=== PATIENT | male | born 1930 | race Caucasian/White ===

== ENCOUNTER 2019-11-16 11:13 | Inpatient (IN) | payer OTHER ==
[~2019-11-16] VITALS: Ht 182.9 cm; Wt 103.4 kg
[~2019-11-16 11:13] MED LIST: ACET650S11 RC; ALLA266C2 TP; AMIO200T4 GT; AMLO5TAB9 GT; APIX5TAB GT; ASCO-495 GT; ASPI-1169 GT; ATOR40TA GT; DEXT37.54 PO; GLUC1KIT IM; INSU100I45 SQ; INSU100V27 SQ; INSU100V30 SQ; ONDA4TAB5 GT; PANT40SU2 GT; POLY17PO4 GT
[2019-11-16] MEDS ORDERED: GLUCAGON,HUMAN RECOMBINANT 1 MG/VIAL VIAL IM PRN (14:00)
[2019-11-16] MEDS ORDERED: ONDANSETRON HCL 4 MG/5 ML SOLUTION GT PRN (14:00)
[2019-11-16] MEDS ORDERED: POLYETHYLENE GLYCOL 3350 17 GM POWD.PACK GT PRN (14:00)
[2019-11-16] MEDS ORDERED: ACETAMINOPHEN 650 MG/SUPP.RECT RC PRN (14:00)
[2019-11-16] MEDS ORDERED: INSULIN ASPART/LISPRO 100 UNIT/ML CARTRIDGE SQ PRN (14:00)
[2019-11-16] MEDS ORDERED: GLUTOSE 15 G GEL..GM. PO PRN (14:00)
--- NOTE | 2019-11-16 16:00 | NUR ---
PT DISCHARGED FROM [facility] AND READMITTED ON HOSPICE. WILL CONTINUE TO MONITOR
[2019-11-16] MEDS ORDERED: DEXTROSE 50%-WATER 50 ML DISP.SYRIN IV PRN (16:30)
[2019-11-16] MEDS: APIXABAN 5 MG TABLET GT SCH (17:26)
[2019-11-16] MEDS: Z GUARD REMEDY 2 OZ OINT TP SCH ×2 (17:31→22:01)
[2019-11-16] MEDS: GLUCERNA 1.2 1,000 ML BOTTLE GT PRN (17:34)
[2019-11-16] MEDS: BLOOD SUGAR DIAGNOSTIC 1 EACH STRIP IN SCH ×2 (17:41→23:38)
[2019-11-16] MEDS: INSULIN NPH, HUMAN ISOPHANE 100 UNIT/ML VIAL SQ SCH (17:41)
[2019-11-16] MEDS: INSULIN REGULAR, HUMAN 100 UNIT/ML 3 ML VIAL SQ PRN (17:44)
[2019-11-16] MEDS ORDERED: INSULIN NPH, HUMAN ISOPHANE 100 UNIT/ML VIAL SQ SCH (18:00)
[2019-11-16] MEDS ORDERED: INSULIN REGULAR, HUMAN 100 UNIT/ML 3 ML VIAL SQ SCH (18:00)
--- NOTE | 2019-11-16 18:50 | NUR ---
RN CLOSING NOTES PT AWAKE IN BED AT THIS TIME. PT REMAINED STABLE THROUGHOUT SHIFT. ALL CARE, NEEDS, MEDICATIONS AND TREATMENT ADMINISTERED ANTICIPATED PER ORDER. PT REPOSITION Q2HR, FC CARE PROVIDED. RESTRAINTS ASSESSED FOR GOOD CIRLATION. ASPIRATION AND SAFETY PRECAUTION IN PLACE AND MAINTAINED AT ALL TIMES. BED IN LOWEST LOCKED POSITION, HOB ELEVATED, RAILS UP X 2, CALL LIGHT WITHIN REACH. WILL ENDORSE TO ARCHITECTURAL TECHNOLOGIST NURSE FOR ANTONINA
--- NOTE | 2019-11-16 19:06 | NUR ---
RN OPENING NOTES RECEIVED PT RESTING IN BED. A/O X1. PT IS CONFUSED. PT IS DNR/DNI WITH HOSPICE CARE NOTED. PT IS BED BOUND. HEELS FLOATED. DAVIS CATHETER IN PLACE DRAINING YELLOW URINE, FREE OF SEDIMENT AT THIS TIME. SKIN IS VERY FRAGILE WITH XEROFORM KERLIX ON KNEE PINK, XEROFORM KERLIX ON LEFT ARM PINK. DIABETIC ULCER ON RIGHT BIG TOE WITH MEPILEX. SACRUM REINFORCED WITH MEPILEX. G TUBE RUNNING GLUCERNA 1.2 @55ML/HR/ PATENT FLUSHED. AUSCULTATED FOR PLACEMENT. IV SITE RIGHT UPPER ARM PICC LINE PATENT FLUSHED. BED IS LOCKED IN LOWEST POSITION WITH ALARM ON. CALL LIGHT WITHIN REACH. WILL CONTINUE TO MONITOR.
--- NOTE | 2019-11-16 19:07 | NUR ---
PT IS ON 3L OF OXYGEN VIA NASAL CANNULA. NO SIGNS OF SOB OR RESPIRATORY DISTRESS. BREATHING IS EVEN AND UNLABORED AT THIS TIME. WILL CONTINUE TO MONITOR.
[2019-11-16 20:00] VITALS: BP 138/54
[2019-11-16] MEDS: AMIODARONE HCL 200 MG TABLET GT SCH (22:00)
[2019-11-16] MEDS: ATORVASTATIN 40 MG TABLET GT SCH (22:00)
--- NOTE | 2019-11-17 03:49 | NUR ---
WOUND CARE CARRIED OUT ORDERED. PT IS SLIGHTLY AGITATED, REORIENTED TO ENVIRONMENT. HYGIENE CARE PROVIDED. WILL CONTINUE TO MONITOR
[2019-11-17 04:00] VITALS: BP 148/71
[2019-11-17] MEDS: BLOOD SUGAR DIAGNOSTIC 1 EACH STRIP IN SCH ×3 (06:10→17:47)
[2019-11-17] MEDS: PANTOPRAZOLE 40 MG/PACK PACK GT SCH (06:10)
[2019-11-17] MEDS: INSULIN NPH, HUMAN ISOPHANE 100 UNIT/ML VIAL SQ SCH (06:13)
[2019-11-17] MEDS: INSULIN REGULAR, HUMAN 100 UNIT/ML 3 ML VIAL SQ PRN (06:16)
--- NOTE | 2019-11-17 07:38 | NUR ---
WOUND CARE CONSULT: PT ON HOSPICE CARE AT THIS TIME. SPOKE WITH FARMER DIVERSIFIED CROPS. PT RESTING AND NOT DISTURBED FOR SKIN ASSESSMENT. RECOMMENDATIONS MADE FOR SKIN PROTECTION AND WOUND CARE. DISCUSSED WITH NURSING STAFF. PT IS ON FIRST STEP HANNAH COLLAZO MD IN AGREEMENT WITH PLAN OF CARE. Addendum: 11/17/19 at 0744 by SEN BARONE WNDNU PER PHOTO DOCUMENTATION AND NURSING REPORT THERE ARE MULTIPLE AREAS OF SKIN DISCOLORATION, SCARRING, LOWER EXTREMITY DRY WOUNDS AND SACRAL DEEP TISSUE INJURY WHICH IS INTACT (NO DRAINAGE) WITH PEELING SKIN, ALL PRESENT ON ADMISSION.
--- NOTE | 2019-11-17 07:43 | NUR ---
RN OPENING NOTE PATIENT IN BED RESTING COMFORTABLY. PATIENT IN NO ACUTE DISTRESS. NO SOB NOTED. PATIENT BREATHING IS EVEN AND UNLABORED. PATIENT WITH BILATERAL SOFT WRIST RESTRAINTS WITH GOOD CIRCULATION NOTED. PATIENT BED ALARM IS ON. PATIENT SAFETY PRECAUTIONS IN PLACE. PATIENT BED IS LOCKED AND IN LOWEST POSITION. CALL LIGHT WITHIN REACH. WILL CONTINUE TO MONITOR.
--- NOTE | 2019-11-17 07:57 | NUR ---
RN CLOSING NOTES PT IS CURRENTLY RESTING IN BED. STILL CONFUSED. STILL ON O2 AT 3L TOLERATING WELL. O2 SATURATION AT 98% NO SIGNS OF RESP DISTRESS OR SHORTNESS OF BREATH NOTED AT THIS TIME. G TUBE STILL RUNNING AT GOAL OF 55ML/HR. TOLERATING WELL. HOB RAISED. LESS THAN 5CC RESIDUALS CHECKED. WOUND CARE PERFORMED ORDERED. CALL LIGHT WITHIN REACH. BED IS LOCKED IN LOWEST POSITION WITH BED ALARM ON. ENDORSED TO ONCOMING NURSE FOR CONTINUATION OF CARE.
[2019-11-17] MEDS: AMLODIPINE BESYLATE 5 MG TABLET GT SCH (08:32)
[2019-11-17] MEDS: ASPIRIN 81 MG TAB.CHEW GT SCH (08:32)
[2019-11-17] MEDS: AMIODARONE HCL 200 MG TABLET GT SCH ×2 (08:33→21:59)
[2019-11-17] MEDS: ASCORBIC ACID 500 MG TABLET GT SCH (08:33)
[2019-11-17] MEDS: APIXABAN 5 MG TABLET GT SCH ×2 (08:35→17:17)
[2019-11-17] MEDS: Z GUARD REMEDY 2 OZ OINT TP SCH ×4 (08:35→21:58)
[2019-11-17 12:00] VITALS: BP 133/79
[2019-11-17] MEDS: GLUCERNA 1.2 1,000 ML BOTTLE GT PRN (12:30)
--- NOTE | 2019-11-17 12:38 | NUR ---
RN NOTE PATIENT BLOOD SUGAR IS 89. NO INSULIN COVERAGE NEEDED PER PROTOCOL.
--- NOTE | 2019-11-17 15:49 | NUR ---
RN NOTE PATIENT IN BED RESTING COMFORTABLY. PATIENT IN NO ACUTE DISTRESS. NO SOB NOTED. PATIENT BREATHING IS EVEN AND UNLABORED. PATIENT KEPT CLEAN, DRY, AND COMFORTABLE THROUGHOUT MY SHIFT. PATIENT IS NOT RESTLESS, BILATERAL SOFT WRIST RESTRAINTS OFF. GOOD CIRCULATION IS NOTED. ENDORSED ALL CARE AND REPORT GIVEN TO TARA OLGUIN FOR ANTONINA. Addendum: 11/17/19 at 1553 by LUCAS SWEENEY RN RN NOTE PATIENT IN BED RESTING COMFORTABLY. PATIENT IN NO ACUTE DISTRESS. NO SOB NOTED. PATIENT BREATHING IS EVEN AND UNLABORED. PATIENT KEPT CLEAN, DRY, AND COMFORTABLE THROUGHOUT MY SHIFT. PATIENT IS NOT RESTLESS, BILATERAL SOFT WRIST RESTRAINTS OFF. GOOD CIRCULATION IS NOTED. PATIENT BED IS LOCKED AND IN LOWEST POSITION. CALL LIGHT WITHIN REACH. ENDORSED ALL CARE AND REPORT GIVEN TO TARA OLGUIN FOR ANTONINA.
--- NOTE | 2019-11-17 15:50 | NUR ---
REPORT RECEIVED FROM CLAU ZAVALA
--- NOTE | 2019-11-17 20:15 | NUR ---
CASINO DUTY MANAGER INITIAL NOTES' RECEIVED REPORT FROM ANOTHER NURSE JENNIE AND SEEN PT IN BED AWAKE BUT EYES CLOSED RESPONDING WHEN YOU CALL HIM, JUST MOANING , WITH NASAL CANULA NO SIGNS OF ANY ACUTE DISTRESS NOTED. HE STILL ON G-TUBE FEEDING GLUCERNA AT 55 ML/HR NO ASPIRATION NOTED. HE ALSO WITH DAVIS TO GRAVITY. KEPT HIM ON SEMI FOWLERS POSITION FOR ASPIRATION PRECAUTION. KEPT HIM WARM AND COMFORTABLE AT ALL TIMES. WILL CONTINUE MONITORING.
[2019-11-17] MEDS: ATORVASTATIN 40 MG TABLET GT SCH (21:58)
[2019-11-17 22:56] VITALS: BP 124/74
[2019-11-18] MEDS: BLOOD SUGAR DIAGNOSTIC 1 EACH STRIP IN SCH ×4 (00:55→18:08)
[2019-11-18] MEDS: INSULIN REGULAR, HUMAN 100 UNIT/ML 3 ML VIAL SQ PRN ×3 (00:58→18:13)
--- NOTE | 2019-11-18 01:07 | NUR ---
nnps notes blood sugar checked done 175, no signs of hypo/hyper glycemia noted. 4 units of insulin given leila SQ as ordered,reposition him for comfort. will continue monitoring.
[2019-11-18 05:09] VITALS: BP 142/75
[2019-11-18] MEDS: INSULIN NPH, HUMAN ISOPHANE 100 UNIT/ML VIAL SQ SCH ×2 (06:00→18:13)
[2019-11-18] MEDS: PANTOPRAZOLE 40 MG/PACK PACK GT SCH (06:11)
[2019-11-18] MEDS: GLUCERNA 1.2 1,000 ML BOTTLE GT PRN (06:45)
--- NOTE | 2019-11-18 07:17 | NUR ---
hospice supervisor alteration workroom closing notes pt awake and confused screaming on and off but no signs of any acute distress noted. Stable throughout the night . g-tube tolerated well no aspiration noted. Morning care done as well as his wound care treatment. reposition pt for comfort. kept him warm and comfortable at all times. on semi fowlers position with side rails up. bed alarm set for safety. will endorse to am nurse.
[2019-11-18 08:00] VITALS: BP 130/77
[2019-11-18] MEDS: APIXABAN 5 MG TABLET GT SCH ×2 (09:23→18:17)
[2019-11-18] MEDS: AMIODARONE HCL 200 MG TABLET GT SCH ×2 (09:23→21:35)
[2019-11-18] MEDS: ASCORBIC ACID 500 MG TABLET GT SCH (09:24)
[2019-11-18] MEDS: ASPIRIN 81 MG TAB.CHEW GT SCH (09:26)
[2019-11-18] MEDS: AMLODIPINE BESYLATE 5 MG TABLET GT SCH (09:26)
[2019-11-18] MEDS: Z GUARD REMEDY 2 OZ OINT TP SCH ×4 (09:26→21:35)
[2019-11-18 12:00] VITALS: BP 127/65
[2019-11-18 16:00] VITALS: BP 126/70
--- NOTE | 2019-11-18 18:48 | NUR ---
SPECIAL SERVICES SUPERVISOR NOTES PT IS CURRENTLY RESTING IN BED. STILL CONFUSED. STILL ON O2 AT 3L TOLERATING WELL. O2 SATURATION AT 95% NO SIGNS OF RESP DISTRESS OR SHORTNESS OF BREATH NOTED AT THIS TIME. G TUBE STILL RUNNING AT GOAL OF 55ML/HR. TOLERATING WELL. HOB KEPT ELEVATED FOR ASPIRATION PRECAUTION. WOUND CARE PERFORMED ORDERED. CALL LIGHT WITHIN REACH. SAFETY PRECAUTION OBSERVED. WILL ENDORSE TO NEXT SHIFT FOR CONTINUATION OF CARE.
[2019-11-18 20:00] VITALS: BP 139/65
[2019-11-18] MEDS: ATORVASTATIN 40 MG TABLET GT SCH (21:32)
[2019-11-19] MEDS: BLOOD SUGAR DIAGNOSTIC 1 EACH STRIP IN SCH ×5 (00:13→23:20)
[2019-11-19] MEDS: INSULIN REGULAR, HUMAN 100 UNIT/ML 3 ML VIAL SQ PRN ×4 (00:14→23:24)
[2019-11-19 04:00] VITALS: BP 102/68
[2019-11-19] MEDS: GLUCERNA 1.2 1,000 ML BOTTLE GT PRN ×2 (05:29→22:55)
[2019-11-19] MEDS: PANTOPRAZOLE 40 MG/PACK PACK GT SCH (05:31)
[2019-11-19] MEDS: INSULIN NPH, HUMAN ISOPHANE 100 UNIT/ML VIAL SQ SCH ×2 (05:39→18:45)
--- NOTE | 2019-11-19 07:30 | NUR ---
LAYOUT TECHNICIAN OPENING NOTES RECEIVED PT IN BED RESTING. NO ACUTE DISTRESS NOTED. NO SOB NOTED. PATIENT BREATHING IS EVEN AND UNLABORED. PATIENT BED ALARM IS ON. PATIENT SAFETY PRECAUTIONS IN PLACE. PATIENT BED IS LOCKED AND IN LOWEST POSITION. CALL LIGHT WITHIN REACH. WILL CONTINUE TO MONITOR.
[2019-11-19 08:00] VITALS: BP 127/71
[2019-11-19] MEDS: ASCORBIC ACID 500 MG TABLET GT SCH (10:00)
[2019-11-19] MEDS: APIXABAN 5 MG TABLET GT SCH ×2 (10:01→18:47)
[2019-11-19] MEDS: AMLODIPINE BESYLATE 5 MG TABLET GT SCH (10:02)
[2019-11-19] MEDS: AMIODARONE HCL 200 MG TABLET GT SCH ×2 (10:02→21:53)
[2019-11-19] MEDS: ASPIRIN 81 MG TAB.CHEW GT SCH (10:02)
[2019-11-19] MEDS: Z GUARD REMEDY 2 OZ OINT TP SCH ×4 (10:04→22:20)
[2019-11-19 12:00] VITALS: BP 123/58
[2019-11-19] MEDS: MORPHINE SULFATE SOLN CONCENTRATED 20 MG/ML SL PRN ×2 (14:04→21:53)
--- NOTE | 2019-11-19 18:59 | NUR ---
RN CLOSING NOTES Pt awake with episodes of confusion. g-tube tolerated well no aspiration noted. AM care done as tolerated. reposition pt for comfort. kept him warm and comfortable at all times. on semi fowlers position with side rails up. bed alarm set for safety. will endorse to am nurse.
--- NOTE | 2019-11-19 19:30 | NUR ---
HOD CARRIER A/O X 1 IN BED CONFUSED NEEDS FREQUENT RE ORIENTATION NO S/S OF DISTRESS, STABLE. SAFETY MEASURES IN PLACE WILL CONT TO MONITOR
[2019-11-19 20:00] VITALS: BP 153/67
--- NOTE | 2019-11-19 20:51 | NUR ---
CARCASS WASHER PAGED HOSPITALIST PT TRYING TO REMOVE GT FEEDING AND OXYGEN DESPITE EXPLAINING RISKS AND BENEFITS PT NEEDS FREQUENT RE ORIENTATION PER KIMBERLEE OBTAINED ORDERS OF SOFT WRIST BILATERAL RESTRAINT ACUTE MEDICAL RESTRAINT READ BACK AND VERIFIED NOTED AND CARRIED OUT
[2019-11-19] MEDS: ATORVASTATIN 40 MG TABLET GT SCH (21:53)
--- NOTE | 2019-11-19 22:53 | NUR ---
MONORAIL CRANE OPERATOR REASSESS PAIN MEDICATION PT CALM AND SLEEPING AT THIS TIME NO S/S OF DISTRESS
--- NOTE | 2019-11-19 23:00 | NUR ---
CLEANING TECHNICIAN SPOKE TO LUCAS RUSSO REGARDING BILATERAL WRIST RESTRAINT. SON AGREED IF NEEDED. SON APPRECIATIVE TO NURSES
--- NOTE | 2019-11-19 23:05 | NUR ---
MS MATH SPECIALIST NURSE AWARE RESTRAINT APPLICATION.
--- NOTE | 2019-11-20 | NUR ---
138 mg/dl blood sugar sliding scale given
[2019-11-20 04:00] VITALS: BP 118/45
[2019-11-20] MEDS: PANTOPRAZOLE 40 MG/PACK PACK GT SCH (05:44)
--- NOTE | 2019-11-20 05:53 | NUR ---
146 mg/dl blood sugar
--- NOTE | 2019-11-20 05:53 | NUR ---
DC restraint ptp no longer removing lines and tubes remains calm and not in distress
[2019-11-20] MEDS: INSULIN NPH, HUMAN ISOPHANE 100 UNIT/ML VIAL SQ SCH ×2 (06:00→16:22)
[2019-11-20] MEDS: INSULIN REGULAR, HUMAN 100 UNIT/ML 3 ML VIAL SQ PRN (06:01)
[2019-11-20] MEDS: BLOOD SUGAR DIAGNOSTIC 1 EACH STRIP IN SCH ×4 (06:01→23:52)
--- NOTE | 2019-11-20 06:17 | NUR ---
PT MONITORED ACCORDINGLY, O2 SAT 100% 3LPM VIA NC. ALL NEEDS ATTENDED AND ANTICIPATED, KEPT CLEAN, DRY AND COMFORTABLE. REPOSITION EVERY 2 HOURS. WOUND CARE ORDERED, AM CARE RENDERED. NOT IN DISTRESS, CALM. SAFETY MEASURES AT ALL TIMES. ENDORSE POC.
[2019-11-20 08:00] VITALS: BP 125/62
--- NOTE | 2019-11-20 08:00 | NUR ---
RN NOTES PATIENT RECEIVED IN THE BED HOSPICE CARE, BUT PER HOSPITALIST KEEP GTF, OXYGEN, AND DAVIS PER FAMILY REQUEST. PATIENT NONVERBAL, KEEP HOB ELEVATED FOR ASPIRATION PRECAUTION, INFUSING GLUCERNA 55ML/HR RESIDUAL, AND PLACEMENT CHECKED, DAVIS CATHETER DRAINING LIGHT YELLOW OUTPUT. V/S WNL, DNR/DNI, COMFORT CARE . ASSIST TURN AND REPOSTION Q 2 HR. SEEN HOSPITALIST, NO NEW ORDERS, ALSO ADMINISTERED DUE MEDICATION, ASSIST TURN AND REPOSTION Q 2 HR.
[2019-11-20] MEDS: ASPIRIN 81 MG TAB.CHEW GT SCH (09:48)
[2019-11-20] MEDS: APIXABAN 5 MG TABLET GT SCH ×2 (09:49→16:21)
[2019-11-20] MEDS: ASCORBIC ACID 500 MG TABLET GT SCH (09:50)
[2019-11-20] MEDS: AMLODIPINE BESYLATE 5 MG TABLET GT SCH (09:50)
[2019-11-20] MEDS: Z GUARD REMEDY 2 OZ OINT TP SCH ×4 (09:51→21:38)
[2019-11-20] MEDS: AMIODARONE HCL 200 MG TABLET GT SCH ×2 (09:55→21:37)
--- NOTE | 2019-11-20 11:47 | NUR ---
rn notes BS-111MG/DL, GTF GLUCERNA 55 ML/HR INTACT, FLUSHED WITH WATER, , KEEP HOB ELEVATED FOR ASPIRATION PRECAUTION. ASSIST PATIENT TURN AND REPOSTION Q 2 HR FOR COMFORT MEASURE. WILL CONTINUED MONITORING.
[2019-11-20 13:00] VITALS: BP 159/89
[2019-11-20] MEDS: MORPHINE SULFATE SOLN CONCENTRATED 20 MG/ML SL PRN (14:52)
--- NOTE | 2019-11-20 14:52 | NUR ---
rn notes administered Roxanol 5 ml sl , bp-159/89, p-59, r-14. next to the bed, keep hob elevated for aspiration precaution, comfort care provided.
[2019-11-20 16:00] VITALS: BP 111/63
[2019-11-20] MEDS: GLUCERNA 1.2 1,000 ML BOTTLE GT PRN (16:30)
--- NOTE | 2019-11-20 18:30 | NUR ---
RN NOTES PATIENT ON HOSPICE, V/S WNL, INFUSING GLUCERNA 1.2 AT 55 ML/HR INTACT. TOTAL CARE PROVIDED, ASSIST TURN AND REPOSTION Q 2 HR, CALL LIGHT WITHIN TO REACH, NEXT TO THE BED. ENDORSED ONCOMING NURSE FOLLOW PLAN OF CARE.
--- NOTE | 2019-11-20 19:17 | NUR ---
RN OPENING NOTES PT IS CURRENTLY RESTING IN BED. A/O X 1-2. PT IS AWARE OF SELF AND THAT HE IS IN THE HOSPITAL BUT OFTEN CONFUSED NEED REORIENTATION. HOSPICE. DNR DNI NOTED. WITH GTUBE RUNNING PER HOSPITALIST. PATENT. RESIDUALS CHECKED LESS THAN 5 CC. AUSCULTATED FOR PLACEMENT CONFIRMATION. TOLERATING FEEDING WELL, GLUCERNA @ 55ML/HR GOAL REACHED. ON NASAL CANNULA 3L O2 SATURATING WELL. NO SIGNS OF RESP DISTRESS OR SOB. ERYN PICC LINE FLUSHED AND PATENT. DAVIS CATHETER IN PLACE, DRAINING YELLOW URINE FREE OF SEDIMENT. BED IS LOCKED IN LOWEST POSITION. CALL LIGHT WITHIN REACH. WILL CONTINUE TO MONITOR.
[2019-11-20 21:00] VITALS: BP 110/55
[2019-11-20] MEDS: ATORVASTATIN 40 MG TABLET GT SCH (21:37)
[2019-11-21] MEDS: INSULIN REGULAR, HUMAN 100 UNIT/ML 3 ML VIAL SQ PRN ×5 (00:39→23:39)
[2019-11-21] MEDS: MORPHINE SULFATE SOLN CONCENTRATED 20 MG/ML SL PRN ×4 (01:08→21:19)
--- NOTE | 2019-11-21 01:14 | NUR ---
PT GIVEN ROXANOL PRN FOR PAIN. WOKE UP AGITATED, YELLING C/O OF PAIN. WILL CONTINUE TO MONITOR.
--- NOTE | 2019-11-21 04:17 | NUR ---
PT HAS BEEN LESS AGITATED. MEDICATION EFFECTIVE. OCCASIONAL REDIRECTION AND ORIENTATION NEEDED.
[2019-11-21 05:00] VITALS: BP 113/85
[2019-11-21] MEDS: GLUCERNA 1.2 1,000 ML BOTTLE GT PRN (05:37)
[2019-11-21] MEDS: INSULIN NPH, HUMAN ISOPHANE 100 UNIT/ML VIAL SQ SCH ×2 (05:52→17:34)
[2019-11-21] MEDS: PANTOPRAZOLE 40 MG/PACK PACK GT SCH (05:53)
[2019-11-21] MEDS: BLOOD SUGAR DIAGNOSTIC 1 EACH STRIP IN SCH ×4 (05:53→23:36)
--- NOTE | 2019-11-21 07:10 | NUR ---
RN CLOSING NOTES PT IS AWAKE AT THIS TIME. NO SIGNS OF SOB OR RESP DISTRESS. SATURATING WELL. IS SLIGHTLY AGITATED. REDIRECTED/REORIENTED. NEEDS ATTENDED TO. WILL CONTINUE HOSPICE CARE. BED IS LOCKED IN LOWEST POSITION. WITH ALARM ON. CALL LIGHT WITHIN REACH. ENDORSED TO ONCOMING NURSE FOR CONTINUATION OF CARE.
--- NOTE | 2019-11-21 07:30 | NUR ---
RN OPENING NOTES PATIENT RECEIVED IN THE BED RESTING. ON HOSPICE CARE, BUT PER HOSPITALIST KEEP GTF, OXYGEN, AND DAVIS PER FAMILY REQUEST. NOT IN ANY FORM OF DISTRESS, NO SOB. KEPT HOB ELEVATED FOR ASPIRATION PRECAUTION, INFUSING GLUCERNA 55ML/HR, TOLERATED WELL. DAVIS CATHETER IN PLACE DRAINING YELLOW CLEAR URINE. KEPT PATIENT SAFE AND COMFORTABLE. BED IN LOW/LOCKED POSIITON. SIDERAILS UPX2,CALL LIGHT IN REACH. WILL CONT TO MONITOR ACCORDINGLY.
[2019-11-21] MEDS: ASPIRIN 81 MG TAB.CHEW GT SCH (09:23)
[2019-11-21] MEDS: AMLODIPINE BESYLATE 5 MG TABLET GT SCH (09:23)
[2019-11-21] MEDS: ASCORBIC ACID 500 MG TABLET GT SCH (09:24)
[2019-11-21] MEDS: AMIODARONE HCL 200 MG TABLET GT SCH ×2 (09:25→21:00)
[2019-11-21] MEDS: APIXABAN 5 MG TABLET GT SCH ×2 (09:26→17:06)
[2019-11-21] MEDS: Z GUARD REMEDY 2 OZ OINT TP SCH ×4 (09:37→21:13)
--- NOTE | 2019-11-21 13:00 | NUR ---
Discussed with Damián at [facility] hospice [phone],hospice nurse will see to reassess patient status and then discussed with family regarding B&C vs SNF with hospice care Addendum: 11/21/19 at 1300 by JOHN BOWIE RN Amended: Links added.
--- NOTE | 2019-11-21 15:55 | NUR ---
Per Dami[facility] at [facility] [phone], is ok hospice to a [facility] Cont[facility]F. Referred to [facility] and spoke with Jennifer [phone] states that patient is not VA connected when verified. Left message to Mio at [place] [phone] [id number] to confirm [facility] benefits Addendum: 11/22/19 at 1725 by JOHN BOWIE RN Amended: Links added.
[2019-11-21 16:00] VITALS: BP 125/65
--- NOTE | 2019-11-21 19:18 | NUR ---
RN CLOSING NOTES PATIENT IN STABLE CONDITION. ALL NEEDS ATTENDED AND PROVIDED. ALL DUE MEDS GIVEN ORDERED. KEPT PATIENT SKIN CLEAN AND DRY. TURNED AND REPOSITIONED EVERY 2HRS AND NEEDED. BED IN LOW/LOCKED POSITION, SIDRAILS UPX2, HOB ELEVATED, CALL LIGHT IN REACH. ENDORSED TO CLAU GUALLPA ACCORDINGLY
--- NOTE | 2019-11-21 19:30 | NUR ---
CANDY PACKER NOTE; PATIENT RESTING COMFORTABLE IN BED, NO ACUTE DISTRESS NOTED. BREATHING EVEN AND UNLABORED, NO SOB NOTED. PICC LINE TO ERYN IN PLACE. G-TUBE IN PLACE, INFUSING GLUCERNA 1.2 AT 55ML/HR, HOB ELEVATED. BED LOCKED AND IN LOWEST POSITION, CALL LIGHT IN REACH. WILL CONTINUE TO MONITOR. Addendum: 11/21/19 at 2018 by SALONI BUSTOS RN DAVIS CATHETER IN PLACE, EMPTY AT THIS TIME.
[2019-11-21 21:10] VITALS: BP 101/52
[2019-11-21] MEDS: ATORVASTATIN 40 MG TABLET GT SCH (21:18)
--- NOTE | 2019-11-21 21:25 | NUR ---
CUFF MAKER NOTE: PATIENT NOTED IN DISCOMFORT AND YELLING, ROXANOL 5MG SL GIVEN PER MD ORDER. WILL CONTINUE TO MONITOR.
--- NOTE | 2019-11-21 23:40 | NUR ---
HAIR OR BEAUTY SALON MANAGER NOTE: PATIENT BLOOD SUGAR LEVEL 218MG/DL, PATIENT TO RECEIVE 8 UNITS OF INSULIN PER SLIDING SCALE. NO S/S OF HYPER/HYPOGLYCEMIA NOTED. WILL CONTINUE TO MONITOR.
[2019-11-22] MEDS: GLUCERNA 1.2 1,000 ML BOTTLE GT PRN (00:46)
[2019-11-22] MEDS: MORPHINE SULFATE SOLN CONCENTRATED 20 MG/ML SL PRN ×6 (02:00→16:03)
--- NOTE | 2019-11-22 02:00 | NUR ---
MANAGED SERVICES SALES CONSULTANT NOTE: PATIENT NOTED IN DISCOMFORT AND YELLING, ROXANOL 5MG SL GIVEN PER MD ORDER. WILL CONTINUE TO MONITOR.
--- NOTE | 2019-11-22 03:00 | NUR ---
RIG BUILDER NOTE: PATIENT NOTED THAT G-TUBE WAS PULLED OUT, INFORMED HOSPICE NURSE, SPOKE TO FRANCIS, WILL TRY TO CONTACT MD. WILL CONTINUE TO MONITOR.
[2019-11-22 05:15] VITALS: BP 129/70
[2019-11-22] MEDS: PANTOPRAZOLE 40 MG/PACK PACK GT SCH (05:36)
[2019-11-22] MEDS: BLOOD SUGAR DIAGNOSTIC 1 EACH STRIP IN SCH ×2 (05:37→12:04)
[2019-11-22] MEDS: INSULIN NPH, HUMAN ISOPHANE 100 UNIT/ML VIAL SQ SCH (05:37)
--- NOTE | 2019-11-22 06:00 | NUR ---
CLIENT SERVICES MANAGER NOTE; PATIENT RESTING IN BED, NO ACUTE DISTRESS NOTED. BREATHING EVEN AND UNLABORED, NO SOB NOTED. PICC LINE TO ERYN IN PLACE. PATIENT YELLING, ROXANOL 5MG SL GIVEN PER MD ORDER. SPOKE TO [facility] NURSE FRANCIS TO FOLLOW UP IF ABLE TO SPEAK TO MD, WILL CALL THIS AM. ASKED IF PATIENT CAN GET ORDER FOR ATIVAN TO HELP CALM PATIENT DOWN. PATIENT YELLING THROUGHOUT NIGHT EVEN WITH USE OF ROXANOL. PATIENT BLOOD SUGAR LEVEL 173MG/DL, NO INSULIN GIVEN SINCE NO G-TUBE FEEDING IN PLACE. NO S/S OF HYPER/HYPOGLYCEMIA NOTED. BED LOCKED AND IN LOWEST POSITION, CALL LIGHT IN REACH. WILL ENDORSE TO DAY NURSE TO CONTINUE WITH PLAN OF CARE.
--- NOTE | 2019-11-22 07:30 | NUR ---
RN OPENING NOTES PATIENT RECEIVED IN THE BED RESTING. SCREAMS FROM TIME TO TIME. ON HOSPICE CARE, GTF GOT PULLED OUT PER CARDROOM MANAGER, HOSPICE NOTIFIED, AWAITING REPLY. OXYGEN, AND DAVIS PER FAMILY REQUEST. NOT IN ANY FORM OF DISTRESS, NO SOB. KEPT HOB ELEVATED FOR ASPIRATION PRECAUTION, DAVIS CATHETER IN PLACE DRAINING YELLOW CLEAR URINE. KEPT PATIENT SAFE AND COMFORTABLE. BED IN LOW/LOCKED POSITION. SIDERAILS UPX2,CALL LIGHT IN REACH. WILL CONT TO MONITOR ACCORDINGLY.
[2019-11-22 08:00] VITALS: BP 102/59
--- NOTE | 2019-11-22 08:24 | NUR ---
RN NOTES SPOKE WITH FRANCIS [facility], FOLLOW UP CALL DONE DUE TO G TUBE GOT PULLED OUT BY PATIENT. PER FRANCIS, THEY WILL CALL BACK ONCE THEY TALKED TO THE FAMILY AND THE THEIR DOCTOR. AWARE, NO ORAL MEDS COULD BE GIVEN AT THIS TIME EXCEPT FOR ROXANOL
[2019-11-22] MEDS: ASPIRIN 81 MG TAB.CHEW GT SCH (08:44)
[2019-11-22] MEDS: APIXABAN 5 MG TABLET GT SCH (08:44)
[2019-11-22] MEDS: AMIODARONE HCL 200 MG TABLET GT SCH (08:44)
[2019-11-22] MEDS: AMLODIPINE BESYLATE 5 MG TABLET GT SCH (08:45)
[2019-11-22] MEDS: ASCORBIC ACID 500 MG TABLET GT SCH (08:45)
[2019-11-22] MEDS: Z GUARD REMEDY 2 OZ OINT TP SCH ×2 (08:45→12:04)
--- NOTE | 2019-11-22 08:46 | NUR ---
RN NOTES UNABLE TO ADMINISTER MEDICATIONS PER GT. G TUBE GOT PULLED OUT LAST NIGHT.
--- NOTE | 2019-11-22 09:28 | NUR ---
RN NOTES REPORT GIVEN TO LEIGHANN FOR ANTONINA.
--- NOTE | 2019-11-22 12:04 | NUR ---
HELD INSULIN BS IS 201. INSULIN COVERAGE HELD BECAUSE PT DOESNT HAVE A GTUBE AT THE MOMENT NO FEEDING RUNNING
--- NOTE | 2019-11-22 12:28 | NUR ---
Chuck Lieberman at [place] [phone] [id number] patient [place] not service connected and [place] no [place]. Spoke with Dami[facility] at [facility]- patient is being discharge from there services and will need SNF hospice. Spoke with Samanta [phone], she does not want patient to return to [facility]. She also requested for PEG reinsertion and not to starve the patient. Will discuss with . Addendum: 11/22/19 at 1750 by JOHN BOWIE RN Amended: Links added.
--- NOTE | 2019-11-22 12:59 | NUR ---
HOSPICE PER CHARGE NURSE DR. LAKISHA MENDEZ WILL CLARIFY WITH FAMILY IF THEY WOULD REALLY WANT TO RE-INSERT GTUBE AND D/C HOSPICE OR IF THEY WILL CONTNUE HOSPICE.
[2019-11-22 13:00] VITALS: BP 102/59
--- NOTE | 2019-11-22 14:30 | NUR ---
NGTUBE NGTUBE INSERTED ON R NARE 14FR. AUSCULTATED FOR PLACEMENT, SWOOSHING SOUND HEARD. STAT CHEST XRAY ORDERED TO CONFIRM PLACEMENT.
--- NOTE | 2019-11-22 15:08 | NUR ---
FEEDING PER DR. BANUELOS. OKAY TO RESTART FEEDING ONCE PLACEMENT IS CONFIRMED.
--- NOTE | 2019-11-22 16:33 | NUR ---
Spoke with Melina in Financial [phone], will assisist with Medical application as patient has Medicare part A only and no secondary. Spoke with Jennifer @ [facility] [phone] case still being reviewed for consideration. Spoke with Keena at 's if she can take patient back but is closed for new admit due to COVID cases. Case was discussed with NICOLA Kaminski and hosp [facility] - will admit patient under palliative care. Spoke with Samanta- janette. Addendum: 11/22/19 at 1828 by JOHN BOWIE RN Amended: Links added.
[2019-11-22] MEDS ORDERED: NUT.237L30 NG (17:24)
== END 2019-11-22 16:30 | disposition short-term general hospital (02) | DRG 871 ==
LOC: HOSPICE1 11:13 → MEDSG1 11-22 12:51 → HOSPICE1 11-22 16:01
PROVIDERS: ADMIT Internal Medicine; ATTEND Internal Medicine
DX: A41.9 Sepsis, unspecified organism (principal); J96.01 Acute respiratory failure with hypoxia; J69.0 Pneumonitis due to inhalation of food and vomit; N17.0 Acute kidney failure with tubular necrosis; R65.21 Severe sepsis with septic shock; G93.41 Metabolic encephalopathy; N39.0 Urinary tract infection, site not specified; E87.1 Hypo-osmolality and hyponatremia; I69.354 Hemiplegia and hemiparesis following cerebral infarction affecting left non-dominant side; E87.2 Acidosis; I82.403 Acute embolism and thrombosis of unspecified deep veins of lower extremity, bilateral; D63.8 Anemia in other chronic diseases classified elsewhere; I48.91 Unspecified atrial fibrillation; Z86.718 Personal history of other venous thrombosis and embolism; R74.01 Elevation of levels of liver transaminase levels; E87.5 Hyperkalemia; R94.31 Abnormal electrocardiogram [ECG] [EKG]; L89.156 Pressure-induced deep tissue damage of sacral region; T14.8XXA Other injury of unspecified body region, initial encounter; X58.XXXA Exposure to other specified factors, initial encounter; Y93.9 Activity, unspecified; Y92.89 Other specified places as the place of occurrence of the external cause; Z93.1 Gastrostomy status; I73.9 Peripheral vascular disease, unspecified; I10 Essential (primary) hypertension; E78.5 Hyperlipidemia, unspecified
CPT/HCPCS: 71045-TC; 82962-TC; 94799-TC; G0378; J1815

== ENCOUNTER 2019-11-22 16:37 | Inpatient (IN) | payer MEDICARE, OTHER ==
[~2019-11-22] VITALS: Ht 182.9 cm; Wt 91.2 kg
--- NOTE | 2019-11-22 15:45 | NUR ---
D/C HOSPICE PT DISCHARGED FROM HOSPICE, ADMITTED TO [facility]. AWARE. CHARGE NURSE AND MIDDLE CARD TENDER AWARE.
[2019-11-22 16:00] VITALS: BP 115/48
--- NOTE | 2019-11-22 16:51 | NUR ---
NGTUBE 2ND CHEST XRAY DONE TO CONFIRM PLACEMENT,BECAUSE THE 1ST XRAY COULD NOT CLEARLY STATE THE PLACEMENT OF THE NG TUBE.2ND CHEST XRAY RESULTS CAME BUT STILL WONT CONFIRM NG TUBE PLACEMENT THAT IS IN THE STOMACH. [facility] [phone] SPOKE WITH THE RADIOLOGIST WHO READ THE XRAY, PER RADIOLOGIST, NEED TO DO A KUB TO VISUALIZE THE TIP OF THE NGTUBE IN THE STOMACH. STAT KUB ORDERED.
[2019-11-22] MEDS ORDERED: NUT.237L30 NG (17:24)
[2019-11-22] MEDS ORDERED: MORPHINE SULFATE SOLN CONCENTRATED 20 MG/ML SL PRN (17:30)
[2019-11-22] MEDS ORDERED: POLYETHYLENE GLYCOL 3350 17 GM POWD.PACK GT PRN (17:30)
[2019-11-22] MEDS ORDERED: ACETAMINOPHEN 650 MG/SUPP.RECT RC SCH (17:30)
[2019-11-22] MEDS ORDERED: DEXTROSE 50%-WATER 50 ML DISP.SYRIN IV PRN (17:30)
[2019-11-22] MEDS ORDERED: ONDANSETRON HCL 4 MG/5 ML SOLUTION GT PRN (17:30)
[2019-11-22] MEDS ORDERED: HOME MED MISCELLANEOUS XX SCH (17:30)
--- NOTE | 2019-11-22 17:57 | NUR ---
RADIOLOGY RECEIVED CALL FROM [facility], PER RADIOLOGIST TO ADVANCE THE NGTUBE CATH 5CM MORE. CARRIED OUT. STAT KUB ORDERED.
[2019-11-22] MEDS: INSULIN REGULAR, HUMAN 100 UNIT/ML 3 ML VIAL SQ SCH (18:00)
[2019-11-22] MEDS: ATORVASTATIN 40 MG TABLET GT SCH (18:00)
[2019-11-22] MEDS: BLOOD SUGAR DIAGNOSTIC 1 EACH STRIP IN SCH (18:18)
--- NOTE | 2019-11-22 18:18 | NUR ---
INSULIN/LIPITOR UNABLE TO ADMINISTER LIPITOR, STILL AWAITING FOR CONFIRMATION OF PLACEMENT OF NGTUBE. HJELD INSULIN, UNABLE TO START FEEDING D/T AWAITING CONFIRMATION OF NGTUBE.
--- NOTE | 2019-11-22 18:34 | NUR ---
11/22/19 Per Mio at [place] [phone] [id number] patient is not service connected and has no [place] SNF benefits. Spoke with Damián at [facility]- patient is being discharge from there services and will need SNF hospice. Spoke with Samanta [phone], she does not want patient to return to [facility]. She also requested for PEG reinsertion and not to starve the patient. Will discuss with MD. 11/22/19 Spoke with Melina in Financial [phone], will assisist with Medical application as patient has Medicare part A only and no secondary. Spoke with Jennifer @ [facility] [phone] case still being reviewed for consideration. Spoke with Keena at [facility] if she can take patient back but [facility] is closed for new admit due to COVID cases. Case was discussed with NICOLA Kaminski and hosp CNO - will admit patient under palliative care. Spoke with che [place]- updated. Addendum: 11/22/19 at 1834 by JOHN BOWIE RN Amended: Links added.
--- NOTE | 2019-11-22 18:38 | NUR ---
KUB 2ND KUB RESULTS RELAYED TO . PER MD BARBA TO START USING NGTUBE. FREDA TO RE-START FEEDING.
--- NOTE | 2019-11-22 18:54 | NUR ---
FEEDING PUMP CALLED [employer] FOR FEEDING PUMP, STATED THEY WILL BRING TO THE FLOOR.
[2019-11-22] MEDS: GLUCERNA 1.2 1,000 ML BOTTLE NG PRN (19:37)
--- NOTE | 2019-11-22 19:42 | NUR ---
MS RN OPENING NOTES PATIENT CONFUSED WITH PERIODS OF SCREAMING; UNABLE TO REORIENT PATIENT. BILATERAL WRIST RESTRAINTS PRESENT FOR PATIENT SAFETY; SKIN CIRCULATION WNL. ON 3L NC; NO S/S OF ACUTE RESPIRATORY DISTRESS; BREATHING IS EVEN AND UNLABORED. NG TUBE PRESENT ON RIGHT NARE WITH GLUCERNA RUNNING AT 55 ML/HR. DAVIS CATH PRESENT AND DRAINING WELL. RIGHT UPPER ARM PICC LINE PRESENT; INTACT & PATENT, HEP LOCKED. SAFETY MEASURES IN PLACE AND PATIENT'S NEEDS MET. BED LOCKED, ALARM ON, HOB ELEVATED, SIDE RAILS X3, CALL LIGHT WITHIN REACH. WILL CONTINUE TO MONITOR.
[2019-11-22 20:00] VITALS: BP 100/61
[2019-11-22 20:08] LABS: BASOPHILS # (AUTO) 0.1 /CMM (0.0-0.2); BASOPHILS % (AUTO) 0.7 % (0.0-2.0); EOSINOPHILS % (AUTO) 2.3 % (0.0-6.0); HEMATOCRIT 42 % (39-51); HEMOGLOBIN 13.5 g/dL (13.5-17.5); LYMPHOCYTES # (AUTO) 1.9 /CMM (0.8-4.8); MEAN CORPUSCULAR HGB CONC 33 g/dl (31.0-36.0); MEAN CORPUSCULAR VOLUME 98 fL (80-96); MONOCYTES # (AUTO) 1.2 /CMM (0.1-1.30); MONOCYTES % (AUTO) 10.7 % (2.0-12.0); NEUTROPHILS # (AUTO) 7.8 /CMM (1.8-8.9); NEUTROPHILS % (AUTO) 69.3 % (43.0-81.0); PLATELET COUNT (AUTO) 161 /CMM (150-450); RED BLOOD CELL COUNT(AUTO) 4.25 MIL/uL (4.5-6.0); WHITE BLOOD COUNT (AUTO) 11.3 K/uL (4.3-11.0)
[2019-11-22] MEDS: AMIODARONE HCL 200 MG TABLET GT SCH (20:29)
[2019-11-22] MEDS: APIXABAN 5 MG TABLET GT SCH (20:30)
[2019-11-22] MEDS: Z GUARD REMEDY 2 OZ OINT TP SCH (20:40)
--- NOTE | 2019-11-22 20:41 | NUR ---
MS RN NOTES UNABLE TO SCAN ZGUARD; BARCODE NOT FOUND ON BOTTLE. MANUAL ENTRY USED TO SCAN MEDICATION.
[2019-11-23] MEDS: BLOOD SUGAR DIAGNOSTIC 1 EACH STRIP IN SCH ×5 (00:10→23:20)
--- NOTE | 2019-11-23 00:39 | NUR ---
MS RN NOTES PATIENT'S BLOOD SUGAR 253. NOTIFIED APPLIANCE WORKER TEST CONDUCTOR, KIMBERLEE MUSTAFA, WHETHER TO GIVE BOTH SCHEDULED 10 UNITS INSULIN Q6HR WITH SLIDING SCALE COVERAGE. PER KIMBERLEE, GIVE SCHEDULED 10 UNITS OF UNITS FOR NOW, HOLD SLIDING SCALE COVERAGE, AND CLARIFY ORDERS IN THE AM.
[2019-11-23] MEDS: INSULIN REGULAR, HUMAN 100 UNIT/ML 3 ML VIAL SQ SCH ×2 (00:45→06:09)
[2019-11-23] MEDS: INSULIN REGULAR, HUMAN 100 UNIT/ML 3 ML VIAL SQ PRN ×4 (00:46→23:21)
[2019-11-23 04:17] VITALS: BP 103/66
--- NOTE | 2019-11-23 06:30 | NUR ---
MS RN CLOSING NOTES PATIENT SLEEPING; REMAINS CONFUSED WITH PERIODS OF SCREAMING. BILATERAL WRIST RESTRAINTS PRESENT FOR PATIENT SAFETY; SKIN CIRCULATION WNL. ON 3L NC; NO S/S OF ACUTE RESPIRATORY DISTRESS; BREATHING IS EVEN AND UNLABORED. NG TUBE PRESENT ON RIGHT NARE WITH GLUCERNA RUNNING AT 55 ML/HR. DAVIS CATH PRESENT AND DRAINING WELL; 250 CC OF MARSHA URINE WITH SEDIMENTS EMPTIED. RIGHT UPPER ARM PICC LINE PRESENT; INTACT & PATENT, HEP LOCKED. SAFETY MEASURES IN PLACE AND PATIENT'S NEEDS MET. BED LOCKED, ALARM ON, HOB ELEVATED, SIDE RAILS X3, CALL LIGHT WITHIN REACH. WILL ENDORSE TO DAY SHIFT RN PLAN OF CARE.
--- NOTE | 2019-11-23 07:30 | NUR ---
MS RN NOTES PATIENT RECEIVED IN BED, SLEEPING COMFORTABLY WITH NO SIGNS OF PAIN OR DISCOMFORT AT THIS TIME. PATIENT ON NASAL CANNULA, 3 LITERS, WITH NO SIGNS OF RESPIRATORY DISTRESS WITH EVEN NON-LABORED BREATHING, AND NO SOB NOTED AT THIS TIME. PATIENT NASOGASTRIC TUBE IN PLACE CURRENTLY INFUSING FEEDING AT 55ml/hr. PATIENT RIGHT UPPER ARM PICC LINE, SALINE LOCK, INTACT AND PATENT. BILATERAL SOFT WRIST RESTRAINTS IN PLACE WITH ADEQUATE SKIN CIRCULATION, AND VISUAL CHECKS DONE Q 15 MINUTES. DAVIS CATHETER IN PLACE WITH URINE OUTPUT. SAFETY PRECAUTIONS IMPLEMENTED WITH THE BED LOCKED, BED IN THE LOWEST POSITION, BILATERAL SIDE RAILS UP, BED ALARM ON, AND CALL LIGHT WITHIN EASY REACH OF THE PATIENT. WILL CONTINUE TO MONITOR.
--- NOTE | 2019-11-23 07:49 | NUR ---
WOUND CARE CONSULT: PT PRESENTS WITH MULTIPLE SKIN ISSUES INCLUDING FRAGILE SKIN WITH MULTIPLE AREAS OF DISCOLORATION TO EXTREMITIES, CLOSED PREVIOUS G TUBE STOMA WITHOUT DRAINAGE, LEFT ARM SKIN TEAR, RT GREAT TOE DRY ESCHAR AND SACRAL DEEP TISSUE INJURY IN EVOLUTION, ALL PRESENT ON ADMISSION. RECOMMENDATIONS MADE FOR SKIN PROTECTION AND WOUND CARE. DISCUSSED WITH NURSING STAFF. PT IS ON FIRST STEP [facility] LOW AIRLOSS MATTRESS. PT BECOMES AGITATED AT TIMES. MD IN AGREEMENT WITH PLAN OF CARE. Addendum: 11/23/19 at 0752 by SEN BARONE WNDNU Amended: Links added.
[2019-11-23 08:00] VITALS: BP 109/58
[2019-11-23] MEDS: APIXABAN 5 MG TABLET GT SCH ×2 (09:10→17:25)
[2019-11-23] MEDS: Z GUARD REMEDY 2 OZ OINT TP SCH ×4 (09:10→20:32)
[2019-11-23] MEDS: ASPIRIN 81 MG TAB.CHEW GT SCH (09:11)
[2019-11-23] MEDS: AMLODIPINE BESYLATE 5 MG TABLET GT SCH (09:11)
[2019-11-23] MEDS: PANTOPRAZOLE 40 MG/PACK PACK GT SCH (09:11)
[2019-11-23] MEDS: ASCORBIC ACID 500 MG TABLET NG SCH (09:11)
[2019-11-23] MEDS: AMIODARONE HCL 200 MG TABLET GT SCH ×2 (09:12→17:24)
[2019-11-23 12:00] VITALS: BP_SYST 114; BP_DIAS 39; BP_DIAS 59
[2019-11-23] MEDS: GLUCERNA 1.2 1,000 ML BOTTLE NG PRN (12:58)
[2019-11-23 16:00] VITALS: BP 101/47
[2019-11-23] MEDS: ATORVASTATIN 40 MG TABLET GT SCH (17:25)
--- NOTE | 2019-11-23 18:48 | NUR ---
MS RN NOTES PATIENT IN BED, SLEEPING COMFORTABLY WITH NO SIGNS OF PAIN OR DISCOMFORT AT THIS TIME. PATIENT ON NASAL CANNULA, 3 LITERS, WITH NO SIGNS OF RESPIRATORY DISTRESS WITH EVEN NON-LABORED BREATHING, AND NO SOB NOTED AT THIS TIME. PATIENT NASOGASTRIC TUBE IN PLACE CURRENTLY INFUSING FEEDING AT 55ml/hr. PATIENT RIGHT UPPER ARM PICC LINE, SALINE LOCK, INTACT AND PATENT. BILATERAL SOFT WRIST RESTRAINTS IN PLACE WITH ADEQUATE SKIN CIRCULATION, AND VISUAL CHECKS DONE Q 15 MIN[address]ES. DAVIS CATHETER IN PLACE. WOUND CARE DONE ORDERED. MET ALL OF PATIENT NEEDS. SAFETY PRECAUTIONS IMPLEMENTED WITH THE BED LOCKED, BED IN THE LOWEST POSITION, BILATERAL SIDE RAILS UP, BED ALARM ON, AND CALL LIGHT WITHIN EASY REACH OF THE PATIENT. WILL ENDORSE PLAN OF CARE TO UPCOMING RN.
--- NOTE | 2019-11-23 19:04 | NUR ---
RN OPENING NOTES PATIENT IN BED IN SEMI FOLWER'S POSITION. LETHARGIC. IN SEMI LINDSEY'S POSITION. ON NASAL CANULA 3LPM O2. RESPIRATIONS EVEN AND UNLABORED. NGT IN PLACE VERIFIED VIA AUSCULTATION AND ASPIRATION OF GASTRIC CONTENTS. TUBE FEEDING RUNNING ORDERED WITHOUT GASTRIC RESIDUAL. RPICC LINE INTACT AND PATENT. BILATERAL SOFT WRIST RESTRAINS IN PLACE ORDERED. ADEQUATE SKIN CIRCULATION NOTED. DAVIS CATHETER IN PLACE DRAINING URINE. SAFETY MEASURES IN PLACE, CALL LIGHT WITHIN REACH, WILL MONITOR PATIENT.
[2019-11-23 20:00] VITALS: BP 92/42
--- NOTE | 2019-11-24 02:48 | NUR ---
RN NOTE BED BATH/AM CARE/ COMPLETE LINEN CHANGE COMPLETED. PT TOLERATED WELL. RIGHT NGT PLACEMENT VERIFIED VIA AUSCULTATION. TUBE FEEDING RESUMED.
[2019-11-24 04:00] VITALS: BP 113/51
--- NOTE | 2019-11-24 04:50 | NUR ---
RN NOTE TUBE FEEDING ON HOLD. AWAITING X RAY FOR NGT PLACEMENT VERIFICATION.
--- NOTE | 2019-11-24 04:50 | NUR ---
0450 PATIENT ABLE TO PULL OUT HIS NGT DESPITE BEING RESTRAINED. NGT RE INSERTED TO RIGHT NOSTRIL AT 58CM LEVEL WITH NO RESISTANCE MET DURING INSERTION. PLACEMENT VERIFIED BY 2 RNS. PATIENT TOLERATED PROCEDURE WELL. [employer] SUPERINTENDENT KIMBERLEE MUSTAFA WAS NOTIFIED WITH ORDER FOR CHEST XRAY IN AM FOR NGT PLACEMENT. ORDER NOTED.
[2019-11-24] MEDS: BLOOD SUGAR DIAGNOSTIC 1 EACH STRIP IN SCH ×3 (05:48→17:24)
--- NOTE | 2019-11-24 05:50 | NUR ---
RN NOTE CHEST X-RAY RESULTED. TUBE FEEDING RESUMED. WILL MONITOR PT TOLERANCE.
[2019-11-24] MEDS: INSULIN REGULAR, HUMAN 100 UNIT/ML 3 ML VIAL SQ PRN ×3 (05:56→17:27)
--- NOTE | 2019-11-24 06:44 | NUR ---
RN CLOSING NOTES PATIENT SLEEPING IN BED IN SEMI LINDSEY'S POSITION. LETHARGIC BUT RESPONSIVE TO VERBAL AND TACTILE STIMULI. ON NASAL CANULA 3LPM OF O2 AND TOLERATING WELL. RESPIRATIONS EVEN AND UNLABORED. KEPT COMFORTABLE. NGT VIA RIGHT NARE IN PLACE MEASURING AT 58CM. CONFIRMED WITH AUSCULTATION AND ASPIRATION OF GASTRIC CONTENTS. TUBE FEEDING RUNNING ORDERED. TOLERATING WELL WITHOUT GASTRIC RESIDUAL. RIGHT PICC LINE INTACT. RESTRAINTS IN PACE ORDERED. ADEQUATE SKIN CIRCULATION NOTED. VISUAL CHECKS DONE Q15M. DAVIS CATHETER PATENT AND IN PLACE DRAINING URINE. SAFETY MEASURES IN PLACE, BED ALARM ON, BED IN LOWEST POSITION, CALL LIGHT WITHIN REACH, ALL NEEDS MET AND ATTENDED TO, WILL ENDORSE TO MORNING RN.
--- NOTE | 2019-11-24 07:30 | NUR ---
RN OPENING NOTES PATIENT RECEIVED IN BED COMFORTABLY. ON NASAL CANULA 3LPM O2. RESPIRATIONS EVEN AND UNLABORED. NGT IN PLACE VERIFIED VIA AUSCULTATION AND ASPIRATION OF GASTRIC CONTENTS. TUBE FEEDING RUNNING ORDERED WITHOUT GASTRIC RESIDUAL. RIGHT PICC LINE INTACT AND PATENT. BILATERAL SOFT WRIST RESTRAINS IN PLACE ORDERED. ADEQUATE SKIN CIRCULATION NOTED. DAVIS CATHETER IN PLACE DRAINING URINE. WILL KEEP SAFE AND COMFORTABLE. WILL CONTINUE TO MONITOR.
[2019-11-24] MEDS: Z GUARD REMEDY 2 OZ OINT TP SCH ×3 (08:57→16:55)
[2019-11-24] MEDS: ASCORBIC ACID 500 MG TABLET NG SCH (08:58)
[2019-11-24] MEDS: AMLODIPINE BESYLATE 5 MG TABLET GT SCH (09:01)
[2019-11-24] MEDS: AMIODARONE HCL 200 MG TABLET GT SCH ×2 (09:01→16:54)
[2019-11-24] MEDS: APIXABAN 5 MG TABLET GT SCH ×2 (09:02→16:55)
[2019-11-24] MEDS: ASPIRIN 81 MG TAB.CHEW GT SCH (09:02)
[2019-11-24] MEDS: PANTOPRAZOLE 40 MG/PACK PACK GT SCH (09:12)
[2019-11-24 10:00] VITALS: BP 129/55
[2019-11-24] MEDS: GLUCERNA 1.2 1,000 ML BOTTLE NG PRN (12:43)
[2019-11-24 16:54] VITALS: BP 136/80
--- NOTE | 2019-11-24 19:11 | NUR ---
MANAGEMENT TRAINEE PROGRAM STORES [facility]CHAR[facility]. ON NASAL CANULA 3LPM O2. RESPIRATIONS EVEN AND UNLABORED. NGT IN PLACE VERIFIED VIA AUSCULTATION AND ASPIRATION OF GASTRIC CONTENTS. TUBE FEEDING RUNNING ORDERED WITHOUT GASTRIC RESIDUAL. RIGHT PICC LINE INTACT AND PATENT. BILATERAL SOFT WRIST RESTRAINS IN PLACE ORDERED. EXIT CARE PROVIDED. LEFT THE FACILITY IN STABLE CONDITION.
== END 2019-11-24 18:40 | disposition hospice, inpatient (51) | DRG 871 ==
LOC: MEDSG1 16:37
PROVIDERS: ADMIT Nurse Practitioner Acute Care; ATTEND Nurse Practitioner Acute Care
DX: A41.9 Sepsis, unspecified organism (principal); J96.01 Acute respiratory failure with hypoxia; R65.21 Severe sepsis with septic shock; G93.41 Metabolic encephalopathy; Z66 Do not resuscitate; Z51.5 Encounter for palliative care; N17.0 Acute kidney failure with tubular necrosis; J69.0 Pneumonitis due to inhalation of food and vomit; N39.0 Urinary tract infection, site not specified; E87.2 Acidosis; B37.49 Other urogenital candidiasis; E87.1 Hypo-osmolality and hyponatremia; I69.954 Hemiplegia and hemiparesis following unspecified cerebrovascular disease affecting left non-dominant side; R74.01 Elevation of levels of liver transaminase levels; D63.8 Anemia in other chronic diseases classified elsewhere; E87.5 Hyperkalemia; I73.9 Peripheral vascular disease, unspecified; I10 Essential (primary) hypertension; I48.91 Unspecified atrial fibrillation; E78.5 Hyperlipidemia, unspecified; R13.10 Dysphagia, unspecified; L89.156 Pressure-induced deep tissue damage of sacral region; Z86.718 Personal history of other venous thrombosis and embolism
CPT/HCPCS: 36415; 71045-TC; 74018; 82962-TC; 85025-TC; A6403; G0378; J1815; Q0162